=== PATIENT | female | born 1990 | race Hispanic/Latino ===

== ENCOUNTER 2018-10-06 22:08 | Emergency (ER) | payer BC ==
--- NOTE | 2018-10-06 22:45 | ED PDOC ---
HPI: Female Pain Time Seen by Provider: 10/06/18 22:42 Chief Complaint (Nursing): Female Genitourinary Chief Complaint (Provider): URINARY SYMPTOMS History Per: Patient History/Exam Limitations: no limitations Onset/Duration Of Symptoms: Days (since yesterday ) Current Symptoms Are (Timing): Still Present Severity: Moderate Pain Scale Rating Of: 6 Quality Of Discomfort: Pressure Associated Symptoms: Back Pain (lower back pain), Urinary Symptoms. 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 Patient denies fever nausea, vomiting, flank pain and hematuria. Patient states her last urinary tract infection was about one year ago. as per patient symptoms ae simialr to previous infections. Patient states she was suppose to follow up with urology but she has not. She denies abnormal vaginal bleeding, discharge, itchiness, irritation. Abnormal Vaginal Bleeding: No Past Medical History Reviewed: Historical Data, Nursing Documentation, Vital Signs Vital Signs: Last Vital Signs Temp 98.3 F 10/06/18 22:16 Pulse 78 10/06/18 22:16 Resp 16 10/06/18 22:16 BP 129/85 10/06/18 22:16 Pulse Ox 98 10/06/18 22:16 Primary Care Provider: Mikey Monteiro - Medical History PMH: No Chronic Diseases - Family History Family History: States: Unknown Family Hx - Social History Alcohol: None Drugs: Denies - Home Medications Home Medications: Ambulatory Orders Medication Instructions Recorded Nitrofurantoin Monohyd/M-Cryst 100 mg PO BID #9 capsule 10/06/18 [Macrobid 100 mg Capsule] Phenazopyridine HCl [Pyridium] 100 mg PO TID #6 tablet 10/06/18 - Allergies Allergies/Adverse Reactions: Allergies Allergy/AdvReac Type Severity Reaction Status Date / Time No Known Allergies Allergy Verified 10/06/18 22:17 Review of Systems ROS Statement: Except As Marked, All Systems Reviewed And Found Negative Constitutional: Negative for: Fever, Chills, Sweats, Weakness Cardiovascular: Negative for: Chest Pain, Palpitations Respiratory: Negative for: Shortness of Breath Gastrointestinal: Negative for: Nausea, Vomiting, Abdominal Pain Genitourinary Female: Positive for: Dysuria, Frequency, Pelvic Pain. Negative for: Hematuria, Vaginal Discharge, Vaginal Bleeding, Rash Musculoskeletal: Positive for: Back Pain (lower back ) Physical Exam - Reviewed Nursing Documentation Reviewed: Yes Vital Signs Reviewed: Yes - Physical Exam Appears: Positive for: Well, Non-toxic, No Acute Distress Head Exam: Positive for: ATRAUMATIC, NORMAL INSPECTION, NORMOCEPHALIC. Negative for: SUNKEN FONTANEL, BULGING FONTANEL Skin: Positive for: Normal Color, Warm, DRY Eye Exam: Positive for: Normal appearance, PERRL ENT: Positive for: Normal ENT Inspection Neck: Positive for: Normal, Painless ROM, Supple Cardiovascular/Chest: Positive for: Regular Rate, Rhythm, Chest Non Tender Respiratory: Positive for: CNT, Normal Breath Sounds Gastrointestinal/Abdominal: Positive for: Normal Exam, Bowel Sounds (normoactive ), Soft. Negative for: Tenderness Pelvic Exam: Positive for: External Exam Normal, Other (pelvis is non-tender on exam ) Back: Positive for: Normal Inspection. Negative for: L CVA Tenderness, R CVA Tenderness Extremity: Positive for: Normal ROM Neurological/Psych: Positive for: Awake, Alert, Normal Tone, Oriented - Laboratory Results Urine POC: Negative Urine dip results: Positive for: Leukocyte Esterase (small), Blood (small). Negative for: Nitrate, Ketones, Glucose, Bilirubin, Protein - ECG O2 Sat by Pulse Oximetry: 98 Medical Decision Making Medical Decision Making: --UA --Urine C&S --Macrobid --Pyridium --UA: positive for large leuks, mod blood. clinical symptoms of UTI. Impression UTI, RX given for macrobid and pyridium first dose given in ED. Return to ED precautions given. Patient states understanding and agrees with plan. Disposition - Clinical Impression Clinical Impression: Urinary tract infection - Patient ED Disposition Is Patient to be Admitted: No Counseled Patient/Family Regarding: Diagnosis, Need For Followup, Rx Given - Disposition Disposition: Routine/Home Disposition Time: 23:30 Condition: GOOD Prescriptions: Nitrofurantoin Monohyd/M-Cryst [Macrobid 100 mg Capsule] 100 mg PO BID #9 capsule Phenazopyridine HCl [Pyridium] 100 mg PO TID #6 tablet Instructions: Urinary Tract Infection, Adult (DC) Forms: [facility] [facility] (Vincentian) Print Language: NEPALI - POA Present On Arrival: None
[2018-10-06 23:04] LABS: SQUAMOUS EPITHIAL 8 /hpf (0-5); URINE BACTERIA RARE (<OCC); URINE BILIRUBIN NEGATIVE (NEGATIVE); URINE BLOOD MODERATE (NEGATIVE); URINE CLARITY SLIGHTY-CLOUDY (Clear); URINE COLOR YELLOW (YELLOW); URINE GLUCOSE (UA) NEG (NEGATIVE); URINE LEUKOCYTE ESTERASE LARGE Leu/uL (Negative); URINE PROTEIN NEGATIVE (NEGATIVE); URINE UROBILINOGEN 0.2-1.0 mg/dL (0.2-1.0)
[2018-10-07 00:32] VITALS: BP 122/81; PULSE 74; RESP 18; TEMP 98.1
[2018-10-07 01:34] VITALS: O2SAT 98
== END 2018-10-06 23:35 | disposition home or self-care (01) ==
LOC: H.ER 22:08
DX: N39.0 Urinary tract infection, site not specified (principal)